=== PATIENT | female | born 1980 | race American Indian/Alaskan Native ===

== ENCOUNTER 2016-06-27 22:30 | Emergency (ER) | payer MEDICAID ==
[2016-06-27 23:04] VITALS: BP 139/103
== END 2016-06-28 05:05 | disposition left against medical advice (07) ==
LOC: ED 22:30
DX: K08.89 Other specified disorders of teeth and supporting structures (principal); Z53.21 Procedure and treatment not carried out due to patient leaving prior to being seen by health care provider

== ENCOUNTER 2019-11-08 12:08 | Emergency (ER) | payer SELFPAY ==
[2019-11-08 12:15] VITALS: BP 140/90
--- NOTE | 2019-11-08 13:43 | Emergency Department Report ---
Chief Complaint: Dyspnea/Respdistress Stated Complaint: SOB, DIARRHEA Time Seen by Provider: 11/08/19 12:43 - HPI History of Present Illness: 39-year-old -[place] female presents to the emergency room for 6-day history of shortness of breath and mild diarrhea. Patient has a past medical history of asthma and has been given herself nebulizer treatment twice a day. Any chest pain fever chills no COVID. Recheck of vitals patient has a heart rate of 83 and pulse ox of 100% on room air. - Exam Vital Signs: Vital Signs 11/08/19 11/08/19 12:12 12:48 Temperature 99 F Pulse Rate 118 H 84 Respiratory 16 18 Rate Blood Pressure 140/90 O2 Sat by Pulse 100 100 Oximetry Physical Exam: Gen: alert oriented NAD Cardic: regular rate and rhythm no murmurs appreciated Resp: Clear to auscultation bilateral no wheezing no rales or rhonchi. Abdomen: Soft nontender nondistended normal bowel sounds. Patient is ambulatory without difficulties shows no distress. MSE screening note: Focused history and physical exam performed. Due to findings the following was ordered: 39-year-old -[place] female presents to the emergency room for 6-day history of shortness of breath and mild diarrhea. Patient has a past medical history of asthma and has been given herself nebulizer treatment twice a day. Any chest pain fever chills no COVID. Recheck of vitals patient has a heart rate of 83 and pulse ox of 100% on room air. Chest x-ray is negative for any acute findings. She can take [id number] Imodium right ear for diarrhea. Continue using her inhalers as prescribed and [place] [facility] [place] Disposition for MSE Disposition: Z- MED SCREENING EXAM-LEFT Is pt being admited?: No Does the pt Need Aspirin: No Condition: Stable Additional Instructions: Chest x-ray is negative for any acute findings. She can take [id number] Imodium right ear for diarrhea. Continue using her inhalers as prescribed and follow-up with her [place] care [place] which [place] [facility] [place] Referrals: PRIMARY CARE, [Primary Care Provider] - 3-5 Days
== END 2019-11-08 13:43 | disposition left against medical advice (07) ==
LOC: ED 12:08
DX: R06.02 Shortness of breath (principal); R19.7 Diarrhea, unspecified
CPT/HCPCS: 71046; 99283

== ENCOUNTER 2019-11-09 19:44 | Emergency (ER) | payer SELFPAY ==
[2019-11-09 19:50] VITALS: BP 138/95
--- NOTE | 2019-11-09 20:04 | Emergency Department Report ---
Chief Complaint: Dyspnea/Respdistress Stated Complaint: SOB,FEELS LIKE SOMETHING IN THROAT - HPI History of Present Illness: 39-year-old -[place] female comes back to the emergency room complaining of shortness of breath and her throat. Patient states that she feels like something is stuck in her throat she denies any true pain no fever no chills no chest pain. Patient did not get medications that was referred to her yesterday. Patient was referred to take Benadryl at night and either Zyrtec's or Claritin during the day. I discussed with patient that for her to continue with her antihistamine take the Benadryl at night and will I will refer her to ear nose and throat provider. - Exam Vital Signs: Vital Signs 11/09/19 19:49 Temperature 98.7 F Pulse Rate 101 H Respiratory 18 Rate Blood Pressure 138/95 O2 Sat by Pulse 100 Oximetry Physical Exam: Gen: alert oriented NAD Cardic: regular rate and rhythm no murmurs appreciated Resp: Clear to auscultation bilateral no wheezing no rales or rhonchi. Abdomen: Soft nontender nondistended normal bowel sounds. Mini neuro: N Crainal nerve II-IIX intact MSE screening note: Focused history and physical exam performed. Due to findings the following was ordered: 39-year-old -[place] female comes back to the emergency room complaining of shortness of breath and her throat. Patient states that she feels like something is stuck in her throat she denies any true pain no fever no chills no chest pain. Patient did not get medications that was referred to her yesterday. Patient was referred to take Benadryl at night and either Zyrtec's or Claritin during the day. I discussed with patient that for her to continue with her antihistamine take the Benadryl at night and will I will refer her to ear nose and throat provider. Discussed with patient ED Disposition for MSE Disposition: MED SCREENING EXAM-LEFT Is pt being admited?: No Does the pt Need Aspirin: No Condition: Stable Instructions: Anxiety (ED) Additional Instructions: Please take Benadryl at night as this will help with sleeping and anxiety as well as dry the secretions you have any in the back of your throat. I recommended she follow-up with the ear nose and throat provider. Referrals: PRIMARY CARE, [Primary Care Provider] - 3-5 Days ASA CAO MD [Staff Physician] - 3-5 Days Forms: Work/School Release Form(ED)
== END 2019-11-09 20:10 | disposition home or self-care (01) ==
LOC: ED 19:44
DX: R06.02 Shortness of breath (principal)
CPT/HCPCS: 99282